=== PATIENT | female | born 1955 | race Caucasian/White ===

== ENCOUNTER 2017-06-14 21:32 | Inpatient (IN) | payer MEDICARE, MEDICAID ==
[~2017-06-14] VITALS: Ht 157.5 cm; Wt 62.6 kg
[2017-06-14] MEDS ORDERED: mag hydrox/Alum hydrox/simeth 30ml oral suspension PO PRN (22:15)
[2017-06-14] MEDS ORDERED: acetaminophen 325mg tablet PO PRN (22:15)
[2017-06-14] MEDS ORDERED: OLANZapine 2.5MG tablet PO SCH (22:15)
[2017-06-15] MEDS: naproxen sodium 220mg tablet PO SCH ×2 (07:29→20:09)
[2017-06-15] MEDS: OLANZapine 2.5MG tablet PO SCH ×2 (07:30→20:10)
[2017-06-15 07:48] VITALS: BP 112/70
[2017-06-15 10:06] LABS: CHOL/HDL RATIO 3.9 (0.00-4.99); CHOLESTEROL 200 MG/DL (0-200); HDL CHOLESTEROL 51 MG/DL (35-60); LDL CHOLESTEROL 134 MG/DL (50-100); TRIGLYCERIDES 82 MG/DL (20-135)
[2017-06-15 10:19] LABS: HEMOGLOBIN A1C 5.3 % (4.5-6.2)
[2017-06-15] MEDS: acetaminophen 325mg tablet PO PRN (17:51)
[2017-06-15 19:55] VITALS: BP 113/82
[2017-06-15 21:47] LABS: CLARITY,URINE Clear (Clear); GLUCOSE, URINE Negative (Neg); KETONES,URINE Negative (Neg); LEUKOCYTE ESTERASE ,URINE Small (Neg); NITRITES, URINE Negative (Neg); OCCULT BLOOD,URINE Negative (Neg); PROTEIN,URINE Negative (Neg); UROBILINOGEN,URINE 0.2 E.U/dL (0.2-1.0)
[2017-06-15 21:48] LABS: COLOR,URINE STRAW (Yellow)
[2017-06-15 21:57] LABS: SQUAMOUS EPITHELIAL CELL,UR FEW /LPF (FEW); UA COLLECTION TYPE NON-SPECIFIED
[2017-06-15 21:58] LABS: BACTERIA,URINE NONE SEEN /HPF (Neg); RBC,URINE NONE SEEN /HPF (0-2); WBC,URINE 0-4 /HPF (0-4)
[2017-06-16 08:00] VITALS: BP 114/74
[2017-06-16] MEDS: naproxen sodium 220mg tablet PO SCH ×2 (08:28→19:11)
[2017-06-16] MEDS: OLANZapine 2.5MG tablet PO SCH ×2 (08:29→20:32)
[2017-06-16] MEDS: acetaminophen 325mg tablet PO PRN (13:34)
[2017-06-16 19:00] VITALS: BP 120/74
[2017-06-16] MEDS: mirtazapine 15mg tablet PO SCH (20:32)
[2017-06-17 08:00] VITALS: BP 125/74
[2017-06-17] MEDS ORDERED: TYPE IN GENERIC & BRAND NAME OF PATIENT MED STRENGTH & FORM PO SCH (08:00)
[2017-06-17] MEDS: OLANZapine 2.5MG tablet PO SCH (08:20)
[2017-06-17] MEDS: naproxen sodium 220mg tablet PO SCH ×2 (08:20→21:20)
[2017-06-17 19:00] VITALS: BP 126/81
[2017-06-17] MEDS: mirtazapine 15mg tablet PO SCH (21:20)
[2017-06-17] MEDS: olanzapine 10mg tablet PO SCH (21:20)
[2017-06-18 07:32] VITALS: BP 97/70
[2017-06-18] MEDS: naproxen sodium 220mg tablet PO SCH ×2 (08:30→20:19)
[2017-06-18] MEDS: OLANZapine 2.5MG tablet PO SCH (08:31)
[2017-06-18 19:50] VITALS: BP 133/87
[2017-06-18] MEDS: olanzapine 10mg tablet PO SCH (20:18)
[2017-06-18] MEDS: mirtazapine 15mg tablet PO SCH (20:19)
[2017-06-19 07:13] VITALS: BP 103/72
[2017-06-19] MEDS: OLANZapine 2.5MG tablet PO SCH (07:58)
[2017-06-19] MEDS: naproxen sodium 220mg tablet PO SCH ×2 (07:58→20:36)
[2017-06-19] MEDS: acetaminophen 325mg tablet PO PRN (15:03)
[2017-06-19 18:55] VITALS: BP 128/81
[2017-06-19 19:00] VITALS: BP 128/81
[2017-06-19] MEDS: olanzapine 10mg tablet PO SCH (20:36)
[2017-06-19] MEDS: mirtazapine 15mg tablet PO SCH (20:38)
[2017-06-20 08:00] VITALS: BP 122/87
[2017-06-20] MEDS: OLANZapine 2.5MG tablet PO SCH (08:10)
[2017-06-20] MEDS: naproxen sodium 220mg tablet PO SCH ×2 (08:10→20:21)
[2017-06-20] MEDS: magnesium hydroxide 30ml (MOM) UD suspension PO PRN (16:50)
[2017-06-20] MEDS: acetaminophen 325mg tablet PO PRN (16:51)
[2017-06-20 19:02] VITALS: BP 111/81
[2017-06-20] MEDS: mirtazapine 15mg tablet PO SCH (20:21)
[2017-06-20] MEDS: olanzapine 10mg tablet PO SCH (20:22)
[2017-06-21 07:20] VITALS: BP 104/76
[2017-06-21] MEDS: OLANZapine 2.5MG tablet PO SCH (08:01)
[2017-06-21] MEDS: naproxen sodium 220mg tablet PO SCH ×2 (08:01→20:00)
[2017-06-21] MEDS: acetaminophen 325mg tablet PO PRN (16:10)
[2017-06-21 19:29] VITALS: BP 101/68
[2017-06-21] MEDS: mirtazapine 15mg tablet PO SCH (20:00)
[2017-06-21] MEDS: olanzapine 10mg tablet PO SCH (20:03)
[2017-06-22 07:12] VITALS: BP 110/78
[2017-06-22] MEDS: OLANZapine 2.5MG tablet PO SCH (08:27)
[2017-06-22] MEDS: naproxen sodium 220mg tablet PO SCH ×2 (08:27→20:20)
[2017-06-22] MEDS: acetaminophen 325mg tablet PO PRN (18:56)
[2017-06-22 19:23] VITALS: BP 108/70
[2017-06-22] MEDS: olanzapine 10mg tablet PO SCH (20:20)
[2017-06-22] MEDS: mirtazapine 15mg tablet PO SCH (20:21)
[2017-06-23] MEDS: naproxen sodium 220mg tablet PO SCH ×2 (07:23→21:05)
[2017-06-23] MEDS: OLANZapine 2.5MG tablet PO SCH (07:23)
[2017-06-23 07:32] VITALS: BP 113/77
[2017-06-23 14:56] LABS: CLARITY,URINE CLEAR (Clear); COLOR,URINE STRAW (Yellow); GLUCOSE, URINE NEGATIVE (Neg); KETONES,URINE NEGATIVE (Neg); LEUKOCYTE ESTERASE ,URINE SMALL (Neg); NITRITES, URINE NEGATIVE (Neg); OCCULT BLOOD,URINE NEGATIVE (Neg); PH,URINE 5.5 (4.8-8.0); PROTEIN,URINE NEGATIVE (Neg); UA COLLECTION TYPE CLN CATCH MIDSTREAM; UROBILINOGEN,URINE 0.2 E.U/dL (0.2-1.0)
[2017-06-23 15:07] LABS: BACTERIA,URINE FEW /HPF (Neg); RBC,URINE 0-2 /HPF (0-2); SQUAMOUS EPITHELIAL CELL,UR FEW /LPF (FEW); WBC,URINE 0-4 /HPF (0-4)
[2017-06-23] MEDS: acetaminophen 325mg tablet PO PRN (18:57)
[2017-06-23 19:00] VITALS: BP 126/80
[2017-06-23] MEDS ORDERED: heparin, porcine 5000 units/ml vial SQ SCH (20:00)
[2017-06-23] MEDS: olanzapine 10mg tablet PO SCH (21:05)
[2017-06-23] MEDS: mirtazapine 15mg tablet PO SCH (21:05)
[2017-06-23] MEDS: metoprolol tartrate 12.5mg (1/2 tablet) PO SCH (21:05)
[2017-06-24] MEDS: pantoprazole 40mg Tablet.DR PO SCH (07:33)
[2017-06-24] MEDS: naproxen sodium 220mg tablet PO SCH ×2 (07:34→21:06)
[2017-06-24] MEDS: OLANZapine 2.5MG tablet PO SCH ×3 (07:35→21:06)
[2017-06-24 07:50] LABS: BASOPHILS % (AUTO) 0.6 % (0-1); EOSINOPHILS # (AUTO) 0.2 X10'3 (0-0.9); EOSINOPHILS % (AUTO) 2.2 % (0-6); HEMATOCRIT 39.4 % (35.0-45.0); HEMOGLOBIN 13.4 g/dl (12.0-16.0); LYMPHOCYTES # (AUTO) 3.2 X10'3 (1.1-4.8); LYMPHOCYTES % (AUTO) 45.4 % (21-51); MEAN CORPUSCULAR HGB CONC 33.9 % (33.0-36.5); MEAN CORPUSCULAR VOLUME 91.5 FL (78-98); MEAN PLATELET VOLUME 8.9 FL (7.4-10.4); MONOCYTES # (AUTO) 0.6 X10'3 (0-0.9); MONOCYTES % (AUTO) 8.5 % (2-12); NEUTROPHILS % (AUTO) 43.3 % (42-75); PLATELET COUNT 325 X10'3 (140-440); RED BLOOD COUNT 4.31 X10'6 (4.20-5.60); RED CELL DISTRIBUTION WIDTH 13.9 % (11.5-14.5)
[2017-06-24] MEDS: metoprolol tartrate 12.5mg (1/2 tablet) PO SCH ×2 (07:59→21:06)
[2017-06-24 08:10] VITALS: BP 98/68
[2017-06-24 08:16] LABS: ALANINE AMINOTRANSFERASE 29 U/L (12-78); ALBUMIN 3.9 G/DL (3.4-5.0); ALBUMIN/GLOBULIN RATIO 1.1 (1.1-1.5); ALKALINE PHOSPHATASE 57 IU/L (46-116); ANION GAP 7 (8-16); ASPARTATE AMINO TRANSFERASE 16 U/L (10-37); BILIRUBIN,TOTAL 0.5 MG/DL (0.1-1.0); BLOOD UREA NITROGEN 16 MG/DL (7-18); BUN/CREATININE RATIO 16.3 (6.6-38.0); CALCIUM 9.5 MG/DL (8.5-10.1); CHLORIDE 105 MMOL/L (99-107); CREATININE 0.98 MG/DL (0.40-0.90); GLUCOSE 99 MG/DL (70-104); POTASSIUM 3.8 MMOL/L (3.5-5.1); SODIUM 139 MMOL/L (135-145); TOTAL CARBON DIOXIDE 26.6 MMOL/L (24-32); TOTAL PROTEIN 7.5 G/DL (6.4-8.2); eGFR 58 ML/MIN
[2017-06-24 08:22] LABS: INR 0.9 INR; PROTHROMBIN TIME 9.7 SECONDS (9.0-12.0)
[2017-06-24] MEDS: magnesium hydroxide 30ml (MOM) UD suspension PO PRN (16:35)
[2017-06-24 19:00] VITALS: BP 98/58
[2017-06-24] MEDS: mirtazapine 15mg tablet PO SCH (21:06)
[2017-06-25 07:23] VITALS: BP 108/79
[2017-06-25] MEDS: naproxen sodium 220mg tablet PO SCH ×2 (07:41→21:14)
[2017-06-25] MEDS: pantoprazole 40mg Tablet.DR PO SCH (07:41)
[2017-06-25] MEDS: metoprolol tartrate 12.5mg (1/2 tablet) PO SCH ×2 (07:41→21:14)
[2017-06-25] MEDS: OLANZapine 2.5MG tablet PO SCH ×3 (07:42→21:14)
[2017-06-25] MEDS: acetaminophen 325mg tablet PO PRN (14:51)
[2017-06-25 19:00] VITALS: BP 114/60
[2017-06-25 21:09] VITALS: BP 114/74
[2017-06-25] MEDS: mirtazapine 15mg tablet PO SCH (21:14)
[2017-06-25] MEDS: traZODone 50mg tablet PO PRN (22:49)
[2017-06-26 07:30] VITALS: BP 106/62
[2017-06-26] MEDS: pantoprazole 40mg Tablet.DR PO SCH (08:44)
[2017-06-26] MEDS: OLANZapine 2.5MG tablet PO SCH ×3 (08:44→21:03)
[2017-06-26] MEDS: naproxen sodium 220mg tablet PO SCH ×2 (08:44→21:03)
[2017-06-26] MEDS: metoprolol tartrate 12.5mg (1/2 tablet) PO SCH ×2 (08:45→21:03)
[2017-06-26] MEDS: acetaminophen 325mg tablet PO PRN (16:07)
[2017-06-26 20:00] VITALS: BP 101/72
[2017-06-26] MEDS: magnesium hydroxide 30ml (MOM) UD suspension PO PRN (21:02)
[2017-06-26 21:03] VITALS: BP 105/72
[2017-06-26] MEDS: mirtazapine 15mg tablet PO SCH (21:03)
[2017-06-26] MEDS: traZODone 50mg tablet PO PRN (21:12)
[2017-06-27] MEDS: pantoprazole 40mg Tablet.DR PO SCH (07:56)
[2017-06-27 08:00] VITALS: BP 108/73
[2017-06-27] MEDS: metoprolol tartrate 12.5mg (1/2 tablet) PO SCH (08:26)
[2017-06-27] MEDS: OLANZapine 2.5MG tablet PO SCH (08:26)
[2017-06-27] MEDS: naproxen sodium 220mg tablet PO SCH (08:26)
[2017-06-27] MEDS ORDERED: METO-395 PO (09:30)
[2017-06-27] MEDS ORDERED: MIRT15TA8 PO (09:30)
[2017-06-27] MEDS ORDERED: TRAZ-143 PO (09:30)
[2017-06-27] MEDS ORDERED: PANT40TA4 PO (09:30)
[2017-06-27] MEDS ORDERED: OLAN5TAB26 PO (09:30)
== END 2017-06-27 12:00 | disposition home or self-care (01) | DRG 885 ==
LOC: ADULT MH 21:33
PROVIDERS: ADMIT Psychiatry & Neurology Psychiatry; ATTEND Psychiatry & Neurology Psychiatry
DX: F29 Unspecified psychosis not due to a substance or known physiological condition (principal); F22 Delusional disorders; F43.10 Post-traumatic stress disorder, unspecified; F25.9 Schizoaffective disorder, unspecified; F12.90 Cannabis use, unspecified, uncomplicated; F10.11 Alcohol abuse, in remission; F32.9 Major depressive disorder, single episode, unspecified; F41.0 Panic disorder [episodic paroxysmal anxiety]; G89.29 Other chronic pain; M06.9 Rheumatoid arthritis, unspecified; I10 Essential (primary) hypertension; G47.00 Insomnia, unspecified; E86.0 Dehydration; Z88.2 Allergy status to sulfonamides; Z88.6 Allergy status to analgesic agent; Z88.8 Allergy status to other drugs, medicaments and biological substances; Z83.79 Family history of other diseases of the digestive system; Z82.49 Family history of ischemic heart disease and other diseases of the circulatory system
CPT/HCPCS: 36415; 80053; 80061; 81001; 83036; 84443; 85025; 85610; 87070; 87088; 93005; J1644; J3490

== ENCOUNTER 2024-03-30 08:58 | Day surgery (SDC) | payer MEDICARE, MEDICAID ==
[2024-03-22 15:38] LABS: BASOPHILS % (AUTO) 0.5 % (0-1); EOSINOPHILS # (AUTO) 0.1 X10'3 (0-0.9); EOSINOPHILS % (AUTO) 0.9 % (0-6); LYMPHOCYTES # (AUTO) 2.6 X10'3 (1.1-4.8); LYMPHOCYTES % (AUTO) 33.8 % (21-51); MEAN CORPUSCULAR HEMOGLOBIN 30.8 PG (27.0-31.0); MEAN CORPUSCULAR HGB CONC 33.3 g/dL (33.0-36.5); MEAN CORPUSCULAR VOLUME 92.4 FL (78-98); MEAN PLATELET VOLUME 8.3 FL (7.4-10.4); MONOCYTES # (AUTO) 0.6 X10'3 (0-0.9); MONOCYTES % (AUTO) 7.5 % (2-12); NEUTROPHILS # (AUTO) 4.3 X10'3 (1.8-7.7); NEUTROPHILS % (AUTO) 57.3 % (42-75); PRE OP HEMATOCRIT 38.7 % (35.0-45.0); PRE OP HEMOGLOBIN 12.9 g/dL (12.0-16.0); PRE OP PLATELET COUNT 363 X10'3 (140-440); PRE OP WHITE BLOOD COUNT 7.6 10'3 (4.8-10.8); RED BLOOD COUNT 4.19 X10'6 (4.20-5.60); RED CELL DISTRIBUTION WIDTH 13.6 % (11.5-14.5)
[2024-03-22 15:47] LABS: PRE OP PROTIME 10.6 SECONDS (9.0-12.0)
[2024-03-22 15:51] LABS: ALBUMIN 3.8 G/DL (3.4-5.0); ALKALINE PHOSPHATASE 57 IU/L (46-116); BLOOD UREA NITROGEN 14 MG/DL (7-18); BUN/CREATININE RATIO 12.3 (10.0-20.0); CALCIUM 8.9 MG/DL (8.5-10.1); CHLORIDE 99 MMOL/L (99-107); CREATININE 1.14 MG/DL (0.40-0.90); PRE OP ALT 17 U/L (30-65); PRE OP ANION GAP 8 (8-16); PRE OP AST 20 U/L (10-37); PRE OP BILIRUB, TOTAL 0.6 MG/DL (0.0-1.0); PRE OP GLUCOSE 94 MG/DL (70-104); PRE OP POTASSIUM 3.6 MMOL/L (3.4-5.1); PRE OP SODIUM 134 MMOL/L (135-145); TOTAL CARBON DIOXIDE 27.2 MMOL/L (24-32); TOTAL PROTEIN 7.7 G/DL (6.4-8.2); eGFR 47 ML/MIN
[2024-03-30] VITALS (11 sets, daily range): BP systolic 96–121; BP diastolic 54–89; PULSE 58–87; RESP 12–22; TEMP 98.8; O2SAT 93–100
[~2024-03-30] VITALS: Ht 162.6 cm; Wt 67.6 kg
[~2024-03-30 08:58] MED LIST: DOCUMENT DATE & TIME OF BETA-BLOCKER PO ONE; EZET10TA48 PO; LORA-268 PO; METO25TA6 PO; PRAZ1CAP5 PO; SERT-433 PO; cefazolin 2gm/D5W 100mL 100 ML IV ONE; famotidine 20mg tablet PO ONE; ringers solution, lacted 1,000 ML IV SCH
[2024-03-30] MEDS ORDERED: LIDOcaine 1% (10mg/ml)w/preservative inj. 20ml MDV ONE (09:35)
[2024-03-30] MEDS ORDERED: BUPIVAcaine 2.5mg/ml inj 50ml vial (contains preservative) ONE (09:35)
[2024-03-30] MEDS ORDERED: propofol 10mg/ml 20ml vial IV ONE (09:55)
[2024-03-30] MEDS ORDERED: fentaNYL/PF 50MCG/1 ML 2ML syringe ONE (09:57)
[2024-03-30] MEDS ORDERED: midazolam 1 mg/ML 2ml injection ONE (09:57)
[2024-03-30] MEDS ORDERED: HYDROmorphone 1 mg/ml syringe ONE (10:18)
== END 2024-03-30 12:01 | disposition home or self-care (01) ==
LOC: PAS 08:58
PROVIDERS: ATTEND Surgery
DX: N64.52 Nipple discharge (principal); R92.8 Other abnormal and inconclusive findings on diagnostic imaging of breast; N60.11 Diffuse cystic mastopathy of right breast; D24.1 Benign neoplasm of right breast; N60.41 Mammary duct ectasia of right breast; N18.30 Chronic kidney disease, stage 3 unspecified; E78.5 Hyperlipidemia, unspecified; F41.9 Anxiety disorder, unspecified; F32.A Depression, unspecified; F43.10 Post-traumatic stress disorder, unspecified; I25.2 Old myocardial infarction; M19.90 Unspecified osteoarthritis, unspecified site; Z79.899 Other long term (current) drug therapy; Z98.890 Other specified postprocedural states; Z88.2 Allergy status to sulfonamides; Z91.041 Radiographic dye allergy status; Z88.8 Allergy status to other drugs, medicaments and biological substances
CPT/HCPCS: 19120; 36415; 80053; 82948; 85025; 85610; 85730; 93005; A4215; A4618; A6402; A7000; J0690; J1100; J1171; J2001; J2250; J2405; J2704; J3010; J3490; J7030; J7120; Z7506; Z7508; Z7512; Z7610; 88307; A6449